=== PATIENT | male | born 1945 ===

== ENCOUNTER 2017-05-18 18:19 | Emergency (ER) | payer MEDICARE, BC ==
[2017-05-18 19:31] VITALS: BP 130/86
--- NOTE | 2017-05-27 11:14 | UC ---
Skin Complaint HPI - HPI Summary HPI Summary: patient had a purplish spot on his chin, knicked it while shaving and it bled profusely for about 2 hours. has since stopped - History of Current Complaint Chief Complaint: UCSkin Time Seen by Provider: 05/18/17 19:52 Stated Complaint: CHIN SKIN COMPLAINT (BLEEDING) Hx Obtained From: Patient Onset/Duration: Sudden Onset, Lasting Hours Skin Exposure Onset/Duration: Hours Ago Timing: Constant Onset Severity: Mild Current Severity: None Pain Intensity: 0 Pain Scale Used: 0-10 Numeric Location: Discrete - chin Alleviating: Cold Compresses - Allergy/Home Medications Allergies/Adverse Reactions: Allergies Allergy/AdvReac Type Severity Reaction Status Date / Time No Known Allergies Allergy Verified 05/18/17 19:31 Home Medications: Home Medications Aspirin [Aspirin 81 MG TAB] 81 mg PO DAILY 05/18/17 [History Confirmed 05/18/17] Lisinopril [Prinivil TAB 20 mg] 20 mg PO DAILY 05/18/17 [History Confirmed 05/18] Simvastatin [Zocor 40 MG (NF)] 40 mg PO QPM 05/18/17 [History Confirmed 05/18/17 ] Review of Systems Constitutional: Negative Skin: Other - purplish, small spot, bleeding Eyes: Negative ENT: Negative Respiratory: Negative Cardiovascular: Negative Gastrointestinal: Negative Genitourinary: Negative Motor: Negative Neurovascular: Negative Musculoskeletal: Negative Neurological: Negative Psychological: Negative All Other Systems Reviewed And Are Negative: Yes PMH/Surg Hx/FS Hx/Imm Hx Previously Healthy: Yes Cardiovascular History: Hypertension - Surgical History Surgical History: Yes Surgery Procedure, Year, and Place: LEFT INGUINAL HERNIA REPAIR--2011 - Family History Known Family History: Positive: Hypertension - Social History Alcohol Use: Occasionally Substance Use Type: None Smoking Status (MU): Former Smoker When Did the Patient Quit Smoking/Using Tobacco: 25 YRS AGO Physical Exam Triage Information Reviewed: Yes Appearance: Well-Appearing, Well-Nourished, Pain Distress Vital Signs: Initial Vital Signs Temp 98.4 F 05/18/17 19:21 Pulse 77 05/18/17 19:21 Resp 16 05/18/17 19:21 BP 130/86 05/18/17 19:21 Pulse Ox 99 05/18/17 19:21 Vital Signs Reviewed: Yes Eye Exam: Normal ENT Exam: Normal Dental Exam: Normal Neck exam: Normal Respiratory Exam: Normal Cardiovascular Exam: Normal Abdominal Exam: Normal Bowel Sounds: Positive: Present Musculoskeletal Exam: Normal Neurological Exam: Normal Psychological Exam: Normal Skin: Positive: significant lesion(s) - angioma on the chin, currently not bleeding Course/Dx - Course Course Of Treatment: hx obtained, exam performed, meds reviewed, no treatment needed, education on angiomas given - Diagnoses Provider Diagnoses: arias angioma Discharge - Discharge Plan Condition: Stable Disposition: HOME Referrals: Non Staff,Doctor [Primary Care Provider] - Additional Instructions: 1. You have a arias angioma 2. There is no treatment 3. They can cause perfuse bleeding. 4. Follow up with your vp publisher development if bleeding persists.
== END 2017-05-18 20:32 | disposition home or self-care (01) ==
LOC: UCCORT 18:19
DX: D18.01 Hemangioma of skin and subcutaneous tissue (principal); I10 Essential (primary) hypertension; Z87.891 Personal history of nicotine dependence
CPT/HCPCS: 99201; G0463